=== PATIENT | male | born 1955 | race Caucasian/White ===

== ENCOUNTER 2018-03-11 07:33 | Emergency (ER) | payer MEDICARE, OTHER ==
[~2018-03-11] VITALS: Ht 182.9 cm; Wt 90.0 kg
[2018-03-11] MEDS ORDERED: ACET-66 PO (08:05)
[2018-03-11] MEDS ORDERED: HYDR25TA PO (08:05)
[2018-03-11] MEDS ORDERED: MELO-107 PO (08:05)
[2018-03-11] MEDS ORDERED: TRAM50TA4 PO (08:05)
[2018-03-11] MEDS ORDERED: SILD25 PO (08:19)
[2018-03-11] MEDS ORDERED: NAPR250T4 PO (08:19)
[2018-03-11] MEDS ORDERED: BISA5TAB12 PO (08:19)
[2018-03-11] MEDS ORDERED: HYDROCODONE/ACETAMINOPHEN 5-325 MG TABLET PO ONE (08:30)
[2018-03-11] MEDS ORDERED: NAPROXEN 250 MG TABLET PO ONE (08:30)
[2018-03-11 08:55] VITALS: BP 123/79
== END 2018-03-11 09:15 | disposition home or self-care (01) ==
LOC: EMS 07:34
DX: M19.011 Primary osteoarthritis, right shoulder (principal); I10 Essential (primary) hypertension; F17.210 Nicotine dependence, cigarettes, uncomplicated; Z88.0 Allergy status to penicillin
CPT/HCPCS: 99406

== ENCOUNTER 2019-01-15 03:59 | Emergency (ER) | payer MEDICARE, OTHER ==
[~2019-01-15] VITALS: Ht 188 cm; Wt 96.4 kg
[~2019-01-15 03:59] MED LIST: ACET-66 PO; BISA-151 PO; HYDR25TA PO; MELO-107 PO; NAPR250T4 PO; SILD25 PO; TRAM50TA4 PO
[2019-01-15] MEDS ORDERED: TRAM50TA4 PO (04:18)
[2019-01-15] MEDS ORDERED: SILD100T71 PO (04:18)
[2019-01-15] MEDS ORDERED: OMEP10CA5 PO (04:18)
[2019-01-15] MEDS ORDERED: ALFU10TA9 PO (04:18)
[2019-01-15] MEDS ORDERED: BISA-151 PO (04:18)
[2019-01-15 04:40] LABS: GLUCOSE,POINT OF CARE 93 MG/DL (70-110)
[2019-01-15 05:15] LABS: BASOPHILS % (AUTO) 0.8 % (0.0-2.0); EOSINOPHILS % (AUTO) 2.6 % (1.0-6.0); HEMATOCRIT 48.4 % (41-53); HEMOGLOBIN 16.3 g/dL (13.5-17.5); LYMPHOCYTES # (AUTO) 2.1 K/uL (1.0-4.8); LYMPHOCYTES % (AUTO) 18.5 % (22.0-44.0); MEAN CORPUSCULAR HEMOGLOBIN 30.8 pg (26.0-34.0); MEAN CORPUSCULAR HGB CONC 33.6 G/dL (31.0-37.0); MEAN CORPUSCULAR VOLUME 92 fL (80-100); MONOCYTES % (AUTO) 8.9 % (2.0-9.0); NEUTROPHILS # (AUTO) 7.7 K/uL (1.8-7.7); NEUTROPHILS % (AUTO) 69.2 % (40.0-70.0); PLATELET COUNT (AUTO) 148 K/uL (150-450); RED BLOOD CELL COUNT(AUTO) 5.29 MIL/uL (4.50-5.90)
[2019-01-15 05:19] LABS: ANION GAP 13 mmol/L (8-16); CALCIUM, TOTAL 9.1 mg/dL (8.8-10.5); CARBON DIOXIDE 23 mmol/L (22-29); CHLORIDE 107 mmol/L (98-107); CREATININE 0.88 mg/dL (0.60-1.30); GLOMERULAR FILTR. RATE CALC > 60 mL/min (>60); GLUCOSE,RANDOM 96 mg/dL (70-110); POTASSIUM 4.4 mmol/L (3.5-5.1); SODIUM SERUM 143 mmol/L (136-145); UREA NITROGEN, BLOOD 22 mg/dL (7-18)
[2019-01-15 05:25] LABS: ALANINE AMINOTRANSFERASE 26 U/L (12-78); ALBUMIN 3.5 g/dL (3.4-5.0); ALKALINE PHOSPHATASE 75 U/L (46-116); ASPARTATE AMINOTRANSFERASE 17 U/L (15-37); BILIRUBIN,TOTAL 0.3 mg/dL (0.1-1.0); TOTAL PROTEIN, SERUM 7.3 g/dL (6.4-8.2)
[2019-01-15 06:03] VITALS: BP 124/86
== END 2019-01-15 06:27 | disposition home or self-care (01) ==
LOC: EMS 04:01
DX: F10.129 Alcohol abuse with intoxication, unspecified (principal); Y90.3 Blood alcohol level of 60-79 mg/100 ml; I10 Essential (primary) hypertension; I67.2 Cerebral atherosclerosis; F17.210 Nicotine dependence, cigarettes, uncomplicated; F11.20 Opioid dependence, uncomplicated; Z79.899 Other long term (current) drug therapy; Z88.0 Allergy status to penicillin
CPT/HCPCS: 36415; 70450; 80053; 82962; 85025; 99284; G0480

== ENCOUNTER 2020-04-23 16:23 | Emergency (ER) | payer MEDICARE, MEDICAID, OTHER ==
[~2020-04-23] VITALS: Ht 180.3 cm; Wt 90.9 kg
[~2020-04-23 16:23] MED LIST changes: +ALFU10TA9 PO; +HYDR-1475 PO; -HYDR25TA PO; +OMEP10CA5 PO; +SILD100T71 PO
[2020-04-23] MEDS ORDERED: OMEP20 PO (16:28)
[2020-04-23 19:00] VITALS: BP 135/82
[2020-04-23] MEDS ORDERED: IBUPROFEN 600 MG TABLET PO ONE (19:15)
== END 2020-04-23 20:01 | disposition home or self-care (01) ==
LOC: EMS 16:24
DX: S83.91XA Sprain of unspecified site of right knee, initial encounter (principal); I10 Essential (primary) hypertension; F17.210 Nicotine dependence, cigarettes, uncomplicated; F12.90 Cannabis use, unspecified, uncomplicated; Z88.0 Allergy status to penicillin; W19.XXXA Unspecified fall, initial encounter; Y93.89 Activity, other specified; Y92.89 Other specified places as the place of occurrence of the external cause; Y99.8 Other external cause status